=== PATIENT | male | born 1965 | race African-American/Black ===

== ENCOUNTER 2019-06-06 09:43 | Outpatient (CLI) | payer OTHER ==
--- NOTE | 2019-06-06 10:06 | RAD ---
XR Shoulder Rt 3 View STANDARD HISTORY: Right shoulder pain FINDINGS: No fracture or dislocation is identified. Minimal arthritic changes are seen in the glenohumeral join t.
== END 2019-06-06 09:44 | disposition home or self-care (01) ==
LOC: RAD-FRANK 09:43
PROVIDERS: ATTEND Internal Medicine
DX: M25.511 Pain in right shoulder (principal); M19.011 Primary osteoarthritis, right shoulder

== ENCOUNTER 2019-09-03 09:18 | Outpatient (CLI) | payer OTHER ==
--- NOTE | 2019-09-03 11:15 | MRI ---
MRI BRAIN WITH AND WITHOUT CONTRAST: DATE: 09/03/2019 HISTORY: 54-year-old male with multiple sclerosis COMPARISON: No prior brain MRIs. TECHNIQUE: Multiplanar, multisequence MRI of the brain performed pre- and post-IV injection of gadolinium based contrast agent. FINDINGS: There are multifocal T2 hyperintense asymmetrically distributed signal abnormalities in the periventr icular white matter, many of them confluent with each other. Among the larger lesions, right frontal 1.5 x 1.5 x 1 cm lesion broadly abutting the superior border of the anterior body of right la teral ventricle extends into the right frontal centrum semiovale. A similar sized lesion is located in the left pruitt radiata and centrum semiovale abutting the superior lateral edge of the left later al ventricle. The rest of the lesions are smaller. Thin linear tract of T2 hyperintensity along the inferior margin of the corpus callosum from rostrum to splenium, is nonspecific. There is a thin curv ilinear T2 hyperintense lesion involving one of the left frontal gyri (FLAIR axial images 19 and 20 of 27, series 9). The other T2 hyperintense lesions are smaller, most of them less than 1 cm. There i s no involvement of the brachium pontis. There is no restricted diffusion. No evidence of recent or remote intra-axial hemorrhage. No obstructive hydrocephalus. No mass effect, midline shift, or extra- axial fluid collection. Mild diffuse brain parenchymal volume loss. No abnormal enhancement. IMPRESSION: 1) multifocal white matter lesions. 2) at least some of this probably represents chronic ischemic white matter changes due to microvascul ar atherosclerosis, mild or moderate. 3) one of the thin linear lesions involving left frontal cortex may represent a small old cortical in farction. 4) some of the lesions, including 2 of the larger ones, could represent multiple sclerosis demyelinat ing plaques, given the established diagnosis of multiple sclerosis as stated in the history. 5) no abnormal enhancement to indicate any currently active demyelination.
== END 2019-09-03 09:19 | disposition home or self-care (01) ==
LOC: BICMRI 09:18
PROVIDERS: ATTEND Nurse Practitioner Acute Care
DX: G35 Multiple sclerosis (principal); G93.9 Disorder of brain, unspecified
CPT/HCPCS: 70553

== ENCOUNTER 2019-12-24 07:42 | Outpatient (CLI) | payer OTHER ==
--- NOTE | 2019-12-24 09:57 | MRI ---
MR of the right shoulder without contrast INDICATION: Right shoulder pain. Right rotator cuff tear TECHNIQUE: Sagittal T1, axial and coronal PD fat sat, sagittal and coronal T2 fat sat images were obt ained of the right shoulder. COMPARISON: None. FINDINGS: Motion artifact limits image detail. Rotator cuff: There is complete tear of the supra spinous tendon with retraction of the tendon approx imately 3.4 cm from the levels attachment. There is partial thickness articular surface tear extension into the anterior mid infraspinatus at the footprint with delamination of the tear back to the muscular tendinous junction of the infraspinatus. There is moderate tendinosis of the subscapularis without evidence of full-thickness tear Glenohumeral joint: Articular cartilage is intact. Glenoid labrum: Intact Biceps tendon and biceps anchor: Intact and located. Acromion clavicular joint: Moderate AC joint osteoarthrosis. There is a type II acromion with an asso ciated anterior inferior projecting acromial spur Subacromial subdeltoid space: No appreciable fluid. Axillary region: No lymphadenopathy. Surrounding shoulder musculature: Normal. No evidence of atrophy or strain. IMPRESSION: 1. Complete supraspinatus rotator cuff tendon tear with 3.4 cm retraction. There is partial thickness high-grade articular surface extension into the anterior to mid infraspinatus tendon. There is moderate tendinosis of the subscapularis without evidence of a full-thickness tear. 2. Moderate AC joint osteoarthrosis. There is a prominent anterior inferior projecting acromial spur which may predispose to encroachment.
== END 2019-12-24 07:43 | disposition home or self-care (01) ==
LOC: BICMRI 07:42
PROVIDERS: ATTEND Orthopaedic Surgery
DX: M75.101 Unspecified rotator cuff tear or rupture of right shoulder, not specified as traumatic (principal); M19.011 Primary osteoarthritis, right shoulder; M75.91 Shoulder lesion, unspecified, right shoulder; M67.813 Other specified disorders of tendon, right shoulder

== ENCOUNTER 2020-02-06 06:31 | Observation (INO) | payer OTHER ==
[2020-02-06] MEDS ORDERED: Midazolam HCl 2 mg/2 ml Vial ONE ×2 (08:00→08:40)
[2020-02-06] MEDS ORDERED: Fentanyl 100 MCG/2 ML VIAL ONE (08:00)
[2020-02-06 08:05] LABS: #Basophils 0.1 thou/uL (0.0-0.2); #Eosinphils 0.2 thou/uL (0.0-0.7); #Lymphocytes 1.9 thou/uL (1.20-3.40); #Monocytes 0.5 thou/uL (0.11-0.59); %Basophils 2.1 % (0.0-1.0); %Eosinophils 4.2 % (0.0-10.0); %Lymphocytes 32.2 % (21.0-51.0); %Monocytes 9.3 % (0.0-10.0); %Neutrophils 52.1 % (42.0-75.0); Hemoglobin 15.3 g/dL (14.0-18.0); Mean Corpuscular HGB CONC 32.8 g/dL (32.0-36.0); Mean Corpuscular Hemoglobin 28.4 pg (27.0-31.0); Mean Corpuscular Volume 86.4 fL (78.0-98.0); Mean Platelet Volume 6.9 fL (7.4-10.4); Platelet Count 238 thou/uL (130-400); Red Blood Cell (RBC) Count 5.39 mill/uL (4.70-6.10); White Blood Cell (WBC) Count 5.7 thou/uL (4.8-10.8)
[2020-02-06] MEDS ORDERED: Zolpidem Tartrate 5 MG TAB PO PRN (08:22)
[2020-02-06] MEDS ORDERED: traMADol HCl 50 MG TAB PO PRN ×4 (08:22→12:12)
[2020-02-06] MEDS ORDERED: Acetaminophen 325 MG TAB PO PRN (08:22)
[2020-02-06] MEDS ORDERED: HYDROcodone/Acetaminophen 10/325 mg Tablet PO PRN ×4 (08:22→12:12)
[2020-02-06] MEDS ORDERED: Ondansetron PF 4 MG/2 ML Vial IVP PRN ×2 (08:22→12:12)
[2020-02-06] MEDS ORDERED: Fentanyl 100 MCG/2 ML VIAL IV PRN (08:22)
[2020-02-06] MEDS ORDERED: Ropivacaine 0.2% 550 ML 550 ML NERVE BLCK SCH (08:22)
[2020-02-06] MEDS ORDERED: Promethazine HCl 25 MG/ML VIAL IM PRN (08:22)
[2020-02-06] MEDS ORDERED: Bupivacaine 0.25% HCL 30 ML VIAL ONE (08:43)
[2020-02-06] MEDS ORDERED: Lidocaine 1% w/Epinephrine 1:100K 20 ML VIAL ONE (08:43)
[2020-02-06] MEDS ORDERED: PROPOFOL 20 ML ONE (08:45)
[2020-02-06] MEDS ORDERED: Lidocaine 1% PF 5 ML VIAL ONE ×2 (08:45→10:54)
--- NOTE | 2020-02-06 09:02 | RAD ---
PORTABLE CHEST 1 VIEW: DATE: 02/06/2020. TIME: 8:17 AM. HISTORY: Preoperative evaluation. FINDINGS/IMPRESSION: The heart size is normal. There is elevation of the right hemidiaphragm with adjacent mild atelectat ic change versus scarring. No lobar consolidation, pneumothoraces, or large effusions are seen. POS: [facility]
[2020-02-06] MEDS ORDERED: Succinylcholine Chloride 20 MG/ML 10 ml SYRINGE FS ONE (10:54)
[2020-02-06] MEDS ORDERED: Glycopyrrolate 0.2 MG/ML 5 ML SYRINGE ONE (10:54)
[2020-02-06] MEDS ORDERED: Rocuronium Bromide 10 MG/ML (10ML VIAL) ONE (10:54)
[2020-02-06] MEDS ORDERED: PROPOFOL 200 MG/20 ML VIAL ONE (10:54)
[2020-02-06] MEDS ORDERED: Ropivacaine 0.5% HCl/PF (150 MG/30 ML VIAL) ONE (10:55)
[2020-02-06] MEDS ORDERED: Ropivacaine 0.2% HCl/PF (40 MG/20 ML VIAL) ONE (10:55)
[2020-02-06] MEDS ORDERED: Morphine 2 MG/ML SYRINGE SLOW IVP PRN (12:12)
--- NOTE | 2020-02-06 12:13 | EKG ---
Test Reason : PREOP Blood Pressure : / mmHG Vent. Rate : 065 BPM Atrial Rate : 065 BPM P-R Int : 166 ms QRS Dur : 090 ms QT Int : 436 ms P-R-T Axes : 048 057 033 degrees QTc Int : 453 ms Normal sinus rhythm Normal ECG No previous ECGs available Confirmed by JONATHAN BORDEN, DR. Albrecht ([id number]) on 02/06/2020 12:13:05 PM Referred By: [facility] Confirmed By:DR. Ambrocio CASTILLO MD
[2020-02-06] MEDS ORDERED: Lactated Ringer's 1,000 ML IV SCH (12:15)
[2020-02-06 13:14] VITALS: BMI 30.5
--- NOTE | 2020-02-06 13:42 | OP ---
DATE OF PROCEDURE: 02/06/2020 PREOPERATIVE DIAGNOSIS: Right full-thickness rotator cuff tear, leading edge of supraspinatus. POSTOPERATIVE DIAGNOSES: 1. Right full-thickness rotator cuff tear, leading edge of supraspinatus. 2. Intra-articular synovitis. PROCEDURE PERFORMED: Right rotator cuff repair. ANESTHESIOLOGIST: Dr. Chirinos. ANESTHESIA: The patient received a general intubation with interscalene block. ESTIMATED BLOOD LOSS: 30 mL. TOURNIQUET TIME: None. IMPLANTS: 5.5 Corkscrew, 5.5 SwiveLock. COMPLICATIONS: None. HISTORY OF PRESENT ILLNESS: Mr. Prieto is a 54-year-old male with history of MS, right shoulder pain for several months, and MRI evidence of full-thickness tear. I discussed with the patient risks and benefits of a right rotator cuff repair to include pain, scar, bleeding, infection, damage to vital structures, decreased range of motion and strength, continued pain despite surgery mentioned, failure of repair, loss of life or limb. The patient understood the risks and benefits of the procedure and elected to proceed. DESCRIPTION OF PROCEDURE: Time-out was performed designating the patient's right upper extremity as the operative site based on site, consents, and marking. After time-out, the patient's right upper extremity was prepped and draped in sterile fashion. He was placed in beach chair position. Posterior working portal and anterior portal were used to visualize intra-articularly. There were no glenoid or humeral defects noted. The biceps looked good throughout its course. You could see the tear intra-articularly, the subscap looked intact with small leading edge tear. I debrided some of the bursa. There was some synovitis, which I cauterized throughout the joint. I then moved subacromially and cleaned out the subacromial space. The footprint was in far anterior aspect of the shoulder. I came into the shoulder and placed my lateral portal and repositioned my anterior cannula. I debrided off the bursa, exposed the footprint, used a frances to bur down to bleeding bone. I placed a fourth stab hole just off the anterolateral edge of the acromion to place the anchor. I placed a 5.5 corkscrew in that footprint. I passed two mattress sutures and used those to stamp down laterally to double row. I washed and closed the incision with 3-0 nylon. The patient will begin passive range of motion and stretching because of the patient's synovitis. I will see him back in 2 weeks for suture removal. The patient will be potentially observed or sent home based on the patient's block, he had a little bit of ozzie paralysis, and so we may have to monitor him overnight depending on Anesthesia's evaluation. Job ID: [id number] MTDD
[2020-02-06] MEDS ORDERED: tiZANidine HCl 4 MG TAB PO SCH (15:00)
[2020-02-06 15:53] VITALS: BP 148/93; TEMP 98.1
[2020-02-06] MEDS ORDERED: CEFAZOLIN 2 GM in Premix Bag 1 BAG IVPB SCH (17:00)
[2020-02-06] MEDS ORDERED: Ketorolac Tromethamine 30 MG/ML VIAL IVP SCH (18:00)
[2020-02-06] MEDS ORDERED: TECFIDERA 240 MG PO SCH (21:00)
[2020-02-07] MEDS ORDERED: Bupropion 150 MG XL TAB PO SCH (09:00)
--- NOTE | 2020-02-07 13:46 | DIS ---
DATE OF ADMISSION: 02/06/2020 DATE OF DISCHARGE: 02/06/2020 PREOPERATIVE DIAGNOSIS: Right full-thickness rotator cuff tear, leading edge of supraspinatus. POSTOPERATIVE DIAGNOSES: 1. Right full-thickness rotator cuff tear, leading edge of supraspinatus. 2. Intra-articular synovitis. PROCEDURE PERFORMED: The patient underwent a right rotator cuff repair. HOSPITAL COURSE: Hospital stay grossly unremarkable. Only reason we kept the patient for 6 hours past the surgery is he has COPD and little trouble breathing from the block. He was okay with having the block removed. We admitted him on observation for 6 hours and he left at 6 o'clock that evening. He had no hospital complications. DISCHARGE CONDITION: Good/stable. DISPOSITION: Home with family. FOLLOWUP: Follow up would be in 2 weeks or sooner if there are problems and/or concerns. DISCHARGE MEDICATIONS: Given the usage instructions. Job ID: [id number]
== END 2020-02-06 17:08 | disposition home or self-care (01) ==
LOC: SDC 06:31 → SURG A 12:19
PROVIDERS: ADMIT Orthopaedic Surgery; ATTEND Orthopaedic Surgery
PROC: 0LQ10ZZ Repair Right Shoulder Tendon, Open Approach (ICD-10-PCS; principal; 2020-02-06)
PROC: 3E0T3GC Introduction of Other Therapeutic Substance into Peripheral Nerves and Plexi, Percutaneous Approach (ICD-10-PCS; 2020-02-06)
DX: M75.121 Complete rotator cuff tear or rupture of right shoulder, not specified as traumatic (principal); M65.811 Other synovitis and tenosynovitis, right shoulder; G35 Multiple sclerosis; J44.9 Chronic obstructive pulmonary disease, unspecified; G89.18 Other acute postprocedural pain; Z79.899 Other long term (current) drug therapy; Z86.73 Personal history of transient ischemic attack (TIA), and cerebral infarction without residual deficits
CPT/HCPCS: 36415; 71045; 85025; 93005; 93010; 96365; A4306; C1713; G0378; J0690; J2001; J2250; J2704; J2795; J3010; S0020

== ENCOUNTER 2020-06-10 13:39 | Outpatient (CLI) | payer OTHER ==
--- NOTE | 2020-06-10 14:51 | MRI ---
MRI LUMBAR SPINE NONCONTRAST: HISTORY: Multiple sclerosis. COMPARISON: None. FINDINGS: Appropriate T1 marrow signal intensity of the lumbar vertebrae. Lumbar spine vertebral body height is maintained. No fracture. No significant STIR hyperintensity to suggest vertebral body edema or ligamentous injury. Bilateral pars defects at L5. Spondylolisthesis: 6.4 mm of anterolisthesis of L5 upon S1. 3.4 mm of retrolisthesis of L4 upon L5. Appropriate signal intensity of the visualized solid organs and paraspinal muscles. Axial T1 and T2 w eighted images are somewhat limited due to motion degradation. Conus medullaris terminates at the mid L1 level. T12-L1:Adequate disc hydration. No evidence of high-grade central canal stenosis or high-grade neural foraminal narrowing. L1-L2:Adequate disc hydration. No evidence of high-grade central canal stenosis or high-grade neural foraminal narrowing. L2-L3:Adequate disc hydration. No evidence of high-grade central canal stenosis or high-grade neural foraminal narrowing. L3-L4:Adequate disc hydration. Broad-based disc bulge minimally abuts the ventral epidural fat. No si gnificant central canal stenosis. Mild ligament flavum thickening and facet hypertrophy. Bilaterally, neural foramina are patent. L4-L5:Adequate disc hydration. There is a broad-based disc bulge abuts the thecal sac. Mild central c anal stenosis. Mild bilateral foraminal narrowing due to disc material. L5-S1:Disc desiccation with mild to moderate loss of disc space height. Broad-based disc bulge. No si gnificant central canal stenosis. Severe bilateral neural foraminal narrowing due to disc material, spondylolisthesis and posterior element hypertrophy. IMPRESSION: 1. Spondylolisthesis and spondylolysis at L5-S1, as described above. 2. Severe bilateral neural foramina and L5-S1 due to spondylolisthesis, disc material and facet hyper trophy. Transcribed Date/Time: 06/10/2020 3:01 PM
== END 2020-06-10 13:40 | disposition home or self-care (01) ==
LOC: BICMRI 13:39
PROVIDERS: ATTEND Psychiatry & Neurology Neurology
DX: G35 Multiple sclerosis (principal); M43.07 Spondylolysis, lumbosacral region; M48.07 Spinal stenosis, lumbosacral region
CPT/HCPCS: 72148

== ENCOUNTER 2022-05-19 13:35 | Emergency (ER) | payer OTHER ==
[~2022-05-19 13:35] MED LIST: Iopamidol-370 76% 500 ML 1 ML ONE
[2022-05-19 13:56] LABS: #Basophils 0.2 thou/uL (0.0-0.2); #Eosinphils 0.2 thou/uL (0.0-0.7); #Lymphocytes 1.6 thou/uL (1.20-3.40); #Monocytes 0.5 thou/uL (0.11-0.59); %Basophils 2.1 % (0.0-1.0); %Eosinophils 2.8 % (0.0-10.0); %Lymphocytes 21.7 % (21.0-51.0); %Monocytes 7.1 % (0.0-10.0); %Neutrophils 66.4 % (42.0-75.0); Hemoglobin 14.9 g/dL (14.0-18.0); Mean Corpuscular HGB CONC 31.9 g/dL (32.0-36.0); Mean Corpuscular Hemoglobin 28.4 pg (27.0-31.0); Mean Corpuscular Volume 89.3 fL (78.0-98.0); Mean Platelet Volume 7.1 fL (7.4-10.4); Platelet Count 222 thou/uL (130-400); RBC Distribution Width 12.4 % (11.5-14.5); Red Blood Cell (RBC) Count 5.25 mill/uL (4.70-6.10); White Blood Cell (WBC) Count 7.5 thou/uL (4.8-10.8)
[2022-05-19 14:18] LABS: ALT (SGPT) 15 U/L (8-55); AST (SGOT) 21 U/L (5-34); Alkaline Phosphatase 109 U/L (40-110); Anion Gap 13 mmol/L (10-20); BUN (Urea Nitrogen) 9 mg/dL (8.4-25.7); Bilirubin, Total 0.4 mg/dL (0.2-1.2); Calc. Creatinine Clearance 0 mL/min (70-130); Calcium 9.1 mg/dL (7.8-10.44); Carbon Dioxide 27 mmol/L (22-29); Chloride 107 mmol/L (98-107); Estimated GFR 71; Globulin 3.4 g/dL (2.4-3.5); Glucose 164 mg/dL (70-105); Lipase 29 U/L (8-78); Potassium 3.7 mmol/L (3.5-5.1); Protein, Total 7.4 g/dL (6.0-8.3); Sodium 143 mmol/L (136-145)
== END 2022-05-19 14:39 | disposition home or self-care (01) ==
LOC: ERS 13:35
DX: S16.1XXA Strain of muscle, fascia and tendon at neck level, initial encounter (principal); G35 Multiple sclerosis; F17.210 Nicotine dependence, cigarettes, uncomplicated; Z79.899 Other long term (current) drug therapy; V43.92XA Unspecified car occupant injured in collision with other type car in traffic accident, initial encounter; Y92.59 Other trade areas as the place of occurrence of the external cause
CPT/HCPCS: 70450; 71045; 71260; 72125; 74177; 80053; 83690; 85025; 93005; G0390; Q9967

== ENCOUNTER 2022-05-20 13:49 | Emergency (ER) | payer OTHER ==
[2022-05-20] MEDS ORDERED: Ketorolac Tromethamine 30 MG/ML VIAL ONE (14:38)
[2022-05-20] MEDS ORDERED: Cyclobenzaprine 10 MG TAB ONE (14:38)
== END 2022-05-20 14:46 ==
LOC: ERS 13:49
DX: S16.1XXA Strain of muscle, fascia and tendon at neck level, initial encounter (principal); M54.50 Low back pain, unspecified; G35 Multiple sclerosis; F17.210 Nicotine dependence, cigarettes, uncomplicated; V89.2XXA Person injured in unspecified motor-vehicle accident, traffic, initial encounter; Z79.899 Other long term (current) drug therapy
CPT/HCPCS: 96372; 99283; J1885